=== PATIENT | female | born 1995 | race Hispanic/Latino ===

== ENCOUNTER 2023-11-03 01:25 | Emergency (ER) | payer OTHER ==
[~2023-11-03] VITALS: Ht 160 cm; Wt 120.0 kg
--- OUTSIDE RECORDS SUMMARY | 2023-11-03 01:41 | XMS ---
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 Pete VISIT COUNT (12 MO.) 1 [facility] [place] TOTAL 1 NOTE: Visits indicate total known visits. ED/UCC VISIT TRACKING (12 MO.) 11/03/2023 01:25 [facility] [place] TYPE: Emergency COMPLAINT: - FALL INPATIENT VISIT TRACKING (12 MO.) No inpatient visits to display in this time frame [email or web address]
[2023-11-03] MEDS ORDERED: HYDROmorphone HCL 1 MG/ML SYR IV ONE (01:45)
[2023-11-03] MEDS ORDERED: OXYCODONE HCL 5 MG TAB PO ONE (02:45)
[2023-11-03] MEDS ORDERED: OXYCODONE/ACETAMINOPHEN 1 TAB HOME.PACK PO ONE (03:00)
[2023-11-03] MEDS ORDERED: OXYCODONE HCL5 MG PO (03:01)
[2023-11-03 03:33] VITALS: BP 117/80
== END 2023-11-03 03:30 | disposition home or self-care (01) ==
LOC: ED 01:25
DX: S82.54XA Nondisplaced fracture of medial malleolus of right tibia, initial encounter for closed fracture (principal); S82.832A Other fracture of upper and lower end of left fibula, initial encounter for closed fracture; W17.89XA Other fall from one level to another, initial encounter
CPT/HCPCS: 73590; 73610; A9270; J1170